=== PATIENT | female | born 1965 | race Caucasian/White ===

== ENCOUNTER 2017-07-29 12:13 | Emergency (ER) | payer OTHER ==
[2017-07-29 14:04] VITALS: BP 136/84
--- NOTE | 2017-07-29 14:37 | UC ---
Abdominal Pain Female HPI - HPI Summary HPI Summary: Pt c/o RLQ quadrant pain that has been intermittent over the last 4 days. Pain is worse today. Pt has history of SBO and splenectomy. Pt reports having two BM's todays. C/o decreased appetite and nausea. - History of Current Complaint Chief Complaint: UCAbdominalPain Stated Complaint: STOMACH PAIN Time Seen by Provider: 07/29/17 14:09 Hx Obtained From: Patient Hx Last Menstrual Period: n/a ?: No Onset/Duration: Gradual Onset, Lasting Days, Still Present, Worse Since - onset 4 days ago Timing: Constant Severity Initially: Mild Severity Currently: Moderate Location: Discrete At: RLQ Radiates: No Character: Cramping, Sharp Aggravating Factor(s): Movement Alleviating Factor(s): Nothing Associated Signs and Symptoms: Positive: Nausea Simlar Episode/Dx as:: SBO - Risk Factors Ectopic Risk Factor: Negative Ovarian Torsion Risk Factor: Negative Allergies/Adverse Reactions: Allergies Allergy/AdvReac Type Severity Reaction Status Date / Time Erythromycin Allergy GI Upset Verified 07/29/17 14:04 Home Medications: Home Medications Chlorzoxazone 500 mg PO TID 07/29/17 [History Confirmed 07/29/17] Hydrocodone-Acetaminophen [Hydrocodone Bitartrate/AC 7.5-325 mg] 1 tab PO BID [History Confirmed 07/29/17] Morphine Sulfate Beads [Morphine Sulfate ER] 15 mg PO BID 07/29/17 [History Confirmed 07/29/17] Tiotropium CAP.INH* [Spiriva CAP.INH*] 1 cap.inh INH BID 07/29/17 [History Confirmed 07/29/17] PMH/Surg Hx/FS Hx/Imm Hx Previously Healthy: No - see pmh GI/ History: Other - SBO, splenectomy Other GI/ History: SBO, splenectomy - Surgical History Surgical History: Yes Surgery Procedure, Year, and Place: bowel surgery. splenectomy - Family History Known Family History: Positive: Cardiac Disease - Social History Occupation: Employed Full-time Lives: With Family Alcohol Use: None Substance Use Type: None Smoking Status (MU): Heavy Every Day Tobacco Smoker Type: Cigarettes Amount Used/How Often: 1/2 ppd Have You Smoked in the Last Year: Yes Review of Systems Constitutional: Negative Skin: Negative Eyes: Negative ENT: Negative Respiratory: Negative Cardiovascular: Negative Gastrointestinal: Abdominal Pain, Nausea Genitourinary: Negative Motor: Negative Neurovascular: Negative Musculoskeletal: Negative Neurological: Negative Psychological: Negative Is Patient Immunocompromised?: No All Other Systems Reviewed And Are Negative: Yes Physical Exam Triage Information Reviewed: Yes Appearance: Ill-Appearing, Pain Distress - mild Vital Signs: Initial Vital Signs Temp 98.5 F 07/29/17 14:00 Pulse 87 07/29/17 14:00 Resp 14 07/29/17 14:00 BP 136/84 07/29/17 14:00 Pulse Ox 97 07/29/17 14:00 Vital Signs Reviewed: Yes Eye Exam: Normal ENT Exam: Normal Dental Exam: Normal Neck exam: Normal Respiratory Exam: Normal Cardiovascular Exam: Normal Abdominal Exam: Other Abdomen Description: Positive: [place]Bur[place]'s Point Tenderness, Other: - RUQ pain Bowel Sounds: Positive: Present - X4 Musculoskeletal Exam: Normal Neurological Exam: Normal Psychological Exam: Normal Skin Exam: Normal Abd Pain Female Course/Dx - Course Course Of Treatment: Pt was advised to go directly to the closest ED. [facility] for further evaluation and testing. Pt verbalized understanding and agreed to plan of care. I discussed my concerns for appendicitis, diverticulitis, IBS, or crohns. - Differential Dx/Diagnosis Differential Diagnosis: Appendicitis, Diverticulitis, Irritable Bowel Syndrome Provider Diagnoses: adominal pain- acute. appendicitis? diverticulitis? IBS? GAllbladder disease - Physician Notification/Consults Discussed Care of Patient With: Kristan Brito - pt was accepted for evaluation at [facility] Time Discussed With Above Provider: 14:38 Discharge - Discharge Plan Condition: Stable Disposition: HOME Patient Education Materials: Acute Abdominal Pain (ED) Referrals: [facility] [place] [facility] [Outside] Additional Instructions: It is recommended that follow immediately at the closest Emergency Room for further evaluation and testing.
== END 2017-07-29 14:41 | disposition home or self-care (01) ==
LOC: UCCORT 12:13
DX: R10.31 Right lower quadrant pain (principal); R11.0 Nausea; Z90.81 Acquired absence of spleen; Z88.1 Allergy status to other antibiotic agents; F17.210 Nicotine dependence, cigarettes, uncomplicated
CPT/HCPCS: 81003; 99202; G0463

== ENCOUNTER 2019-02-14 10:46 | Emergency (ER) | payer OTHER ==
--- NOTE | 2019-02-14 11:52 | UC ---
Respiratory Complaint HPI - HPI Summary HPI Summary: 53-year-old female with history of COPD presents with progressively worsening shortness of breath, wheezing, and cough over the past week. Associated with some mild nasal congestion. She continues to smoke half a pack a day. Has been using her albuterol inhaler with little relief in symptoms. Last used around midnight last night. Denies fever, chills, chest pain, diaphoresis, nausea, or vomiting. - History of Current Complaint Chief Complaint: UCRespiratory Stated Complaint: COUGH,FEVER Time Seen by Provider: 02/14/19 11:51 Hx Obtained From: Patient Hx Last Menstrual Period: n/a Pain Intensity: 0 - Allergies/Home Medications Allergies/Adverse Reactions: Allergies Allergy/AdvReac Type Severity Reaction Status Date / Time shrimp Allergy Hives Verified 02/14/19 11:41 erythromycin base AdvReac GI Upset Verified 02/14/19 11:41 Home Medications: Home Medications Albuterol HFA INHALER* [Ventolin HFA Inhaler*] 1 - 2 puff INH Q4H PRN 02/14/19 [ History Confirmed 02/14/19] Ibuprofen TAB* [Advil TAB*] 800 mg PO Q8H PRN 02/14/19 [History Confirmed ] SUMAtriptan SQ* [Imitrex SQ*] 6 mg SUBCUT SEE INSTRUCTIONS PRN 02/14/19 [ History Confirmed 02/14/19] SUMAtriptan TAB* [Imitrex TAB*] 25 mg PO SEE INSTRUCTIONS PRN 02/14/19 [History Confirmed 02/14/19] oxyCODONE/Acetamin 5/325 MG* [Percocet 5/325 TAB*] 1 tab PO BID 02/14/19 [ History Confirmed 02/14/19] PMH/Surg Hx/FS Hx/Imm Hx Respiratory History: COPD Neurological History: Migraine - Surgical History Surgical History: Yes Surgery Procedure, Year, and Place: Bowel Obstructions, ~2015, [place]; Spleenectomy (Trauma), 1997, [place] - Family History Known Family History: Positive: Cardiac Disease - Social History Occupation: Employed Full-time Lives: With Family Alcohol Use: None Substance Use Type: Prescribed Smoking Status (MU): Heavy Every Day Tobacco Smoker Type: Cigarettes Amount Used/How Often: ~1/2 PPD Length of Time of Smoking/Using Tobacco: Since Age 11 Have You Smoked in the Last Year: Yes Household Exposure Type: Cigarettes Review of Systems All Other Systems Reviewed And Are Negative: Yes Constitutional: Negative: Fever, Chills Eyes: Negative: Drainage, Eye Redness ENT: Positive: Nasal Discharge, Sinus Congestion. Negative: Sore Throat, Ear Ache, Sinus Pain/Tenderness Respiratory: Positive: Shortness Of Breath, Cough, Other - Wheezing Cardiovascular: Negative: Palpitations, Chest Pain Gastrointestinal: Negative: Abdominal Pain, Vomiting, Diarrhea, Nausea Genitourinary: Positive: Negative Musculoskeletal: Positive: Negative Neurological: Positive: Negative Is Patient Immunocompromised?: No Physical Exam - Summary Physical Exam Summary: GENERAL APPEARANCE: Well developed, well nourished, alert and cooperative, and appears to be in no acute distress. EYES: Conjunctiva clear. No drainage. EARS: External auditory canals and tympanic membranes clear, hearing grossly intact. NOSE: Mild nasal congestion. No nasal discharge. THROAT: Pharynx normal No tonsilar inflammation, swelling, exudate, or lesions. Uvula midline. CARDIAC: Normal S1 and S2. No S3, S4 or murmurs. Rhythm is regular. There is no peripheral edema, cyanosis or pallor. Extremities are warm and well perfused. Capillary refill is less than 2 seconds. Peripheral pulses intact. LUNGS: Diminished breath sounds with diffuse wheezing. Bronchospastic cough. ABDOMEN: Positive bowel sounds. Soft, nondistended, nontender. No guarding or rebound. No masses or hepatosplenomegally. MUSKULOSKELETAL: ROM intact to all extremities. No joint erythema or tenderness. Normal muscular development. Normal gait. SKIN: Skin normal color, texture and turgor with no lesions or eruptions. Triage Information Reviewed: Yes Vital Signs: Initial Vital Signs Temp 98.3 F 02/14/19 11:39 Pulse 80 02/14/19 11:39 Resp 18 02/14/19 11:39 BP 125/72 02/14/19 11:39 Pulse Ox 95 02/14/19 11:39 Vital Signs Reviewed: Yes Re-Evaluation - Re-Evaluation First Eval Re-Evaluation Time: 13:00 Change: Improved Comment: Patient states breathing has improved after DuoNeb. Cough improved. Continues to have diffuse bilateral wheezing but air exchange improved. Will repeat DuoNeb and reevaluate. Respiratory Course/Dx - Course Course Of Treatment: 53-year-old female with history of COPD presents with progressively worsening shortness of breath, wheezing, and cough over the past week. Associated with some mild nasal congestion. She continues to smoke half a pack a day. Has been using her albuterol inhaler with little relief in symptoms. Last used around midnight last night. Denies fever, chills, chest pain, diaphoresis, nausea, or vomiting. Afebrile. Vital signs stable. Patient had some mild nasal congestion, diminished bilateral breath sounds with diffuse wheezing, and a bronchospastic cough. She was given prednisone 60 mg PO and 2 DuoNeb treatments in the clinic with improvement in her symptoms. She continued to have some mild bilateral wheezing with much improved air exchange after the second treatment the patient states breathing was much improved and cough had subsided. I will treat her for an acute exacerbation of her COPD. She is continuing to use her rescue inhaler as directed. I will continue her on prednisone 50 mg daily for the next 4 days. Patient is to follow-up with her primary care provider within 4 days for recheck of her symptoms. Anticipatory guidance and warning symptoms were reviewed with the patient. Verbalizes understanding and agrees with plan of care. - Differential Dx/Diagnosis Provider Diagnosis: COPD exacerbation Discharge - Sign-Out/Discharge Documenting (check all that apply): Patient Departure All imaging exams completed and their final reports reviewed: No Studies - Discharge Plan Condition: Stable Disposition: HOME Prescriptions: predniSONE TAB* [Deltasone TAB*] 50 mg PO DAILY #4 tab Patient Education Materials: COPD (Chronic Obstructive Pulmonary Disease) (ED) Referrals: Candace Acosta MD [Primary Care Provider] - 5 Days Additional Instructions: Based on your history and exam I suspect your symptoms are from an exacerbation of your COPD. Continue to use your albuterol inhaler 2 puffs every 4-6 hours as needed for shortness of breath or wheezing. Take prednisone 50 mg 1 tab daily for next 4 days. We gave you a dose in the clinic so start this tomorrow. Follow-up with your primary care provider within the next 5 days for recheck of symptoms. Seek immediate medical attention in the emergency room if you develop fever greater than 100.5 F, have chest pain, worsening shortness of breath, or any worsening of symptoms. - Billing Disposition and Condition Condition: STABLE Disposition: Home - Attestation Statements Provider Attestation: Per institutional requirements, I have reviewed the chart, however, I was not consulted specifically or made aware of this patient by the midlevel provider. I did not personally evaluate, interact with , or disposition this patient.
[2019-02-14] MEDS ORDERED: Albuterol/Ipratropium NEB.SOL* Albuterol 2.5 MG/Ipratropium 0.5 MG 3 ML INH ONE ×2 (12:04→12:56)
[2019-02-14] MEDS ORDERED: predniSONE TAB* 20 MG PO ONE (12:04)
[2019-02-14 14:20] VITALS: BP 134/70
== END 2019-02-14 14:17 | disposition home or self-care (01) ==
LOC: UCCORT 10:46
DX: J44.1 Chronic obstructive pulmonary disease with (acute) exacerbation (principal); F17.210 Nicotine dependence, cigarettes, uncomplicated
CPT/HCPCS: 99213; A9270-GY; G0463; J7512